=== PATIENT | male | born 1945 | race Hispanic/Latino ===

== ENCOUNTER 2017-10-03 10:45 | Inpatient (IN) | payer MEDICARE ==
[~2017-10-03] VITALS: Ht 170.2 cm; Wt 51.9 kg
[~2017-10-03 10:45] MED LIST: ATOR40TA69 PO; CARV12.511 PO; FURO20TA4 PO; ISOS60TA4 PO; LACT10SO9 PO; SPIR25TA4 PO; TAMS0.4C32 PO
[2017-10-03 11:30] LABS: BASOPHILS % (AUTO) 1.2 % (0.0-5.0); EOSINOPHILS % (AUTO) 1.9 % (0.0-8.0); HEMATOCRIT 28.7 % (42-54); LYMPHOCYTES % (AUTO) 6.6 % (21.0-51.0); MEAN CORPUSCULAR HEMOGLOBIN 23.7 pg (27.0-33.0); MEAN CORPUSCULAR HGB CONC 30.4 g/dL (32.0-36.0); MONOCYTES % (AUTO) 5.2 % (3.0-13.0); NEUTROPHILS % (AUTO) 85.1 % (40.0-77.0); PLATELET COUNT (AUTO) 162 K/uL (130-400); RED BLOOD CELL COUNT(AUTO) 3.68 MIL/uL (4.50-6.20); RED CELL DISTRIBUTION WIDTH 22.8 % (11.0-15.5); WHITE BLOOD COUNT (AUTO) 7.9 K/uL (4.8-10.8)
[2017-10-03 12:02] LABS: INR 1.19 (0.85-1.15); PARTIAL THROMBOPLASTIN TIME 30.3 SEC (26.3-35.5); PROTHROMBIN TIME 12.5 SEC (9.6-11.6)
[2017-10-03 12:12] LABS: ALBUMIN 2.6 g/dL (3.5-5.0); BILIRUBIN,TOTAL 1.2 mg/dL (0.2-1.0); CREATINE KINASE MB 0.8 ng/mL (0.5-3.6); CREATININE 1.8 mg/dL (0.5-1.5); POTASSIUM 4.4 mmol/L (3.5-5.1); TOTAL PROTEIN, SERUM 7.7 g/dL (6.0-8.3)
[2017-10-03] MEDS ORDERED: DOCU100C33 PO (23:22)
[2017-10-03 23:40] VITALS: BP 152/82
[2017-10-04 04:00] VITALS: BP 124/71
[2017-10-04 06:31] LABS: HEMATOCRIT 22.9 % (42-54); MEAN CORPUSCULAR HEMOGLOBIN 22.7 pg (27.0-33.0); MEAN CORPUSCULAR HGB CONC 29.6 g/dL (32.0-36.0); MEAN CORPUSCULAR VOLUME 76.6 fL (79-99); NUCLEATED RED BLOOD CELLS 0.1 % (0.0-0.19); PLATELET COUNT (AUTO) 128 K/uL (130-400); RED BLOOD CELL COUNT(AUTO) 2.99 MIL/uL (4.50-6.20); RED CELL DISTRIBUTION WIDTH 22.6 % (11.0-15.5); WHITE BLOOD COUNT (AUTO) 5.1 K/uL (4.8-10.8)
[2017-10-04 06:47] LABS: CREATININE 1.5 mg/dL (0.5-1.5); POTASSIUM 4.5 mmol/L (3.5-5.1)
[2017-10-04 08:07] VITALS: BP 127/73
[2017-10-04] MEDS ORDERED: SODIUM CHLORIDE 0.9% 250 ML IV ONE (11:47)
[2017-10-04 11:59] VITALS: BP 130/65
[2017-10-04] MEDS ORDERED: OCTREOTIDE ACETATE 1,000 MCG in SODIUM CHLORIDE 0.9% 95 ML IV SCH (12:30)
[2017-10-04] MEDS ORDERED: CEFTRIAXONE 1GM/D5W 50ML 50 ML IV SCH (12:45)
[2017-10-04] MEDS: CEFTRIAXONE SODIUM 1 GM IVP SCH (15:45)
[2017-10-04 16:00] VITALS: BP 139/70
[2017-10-04] MEDS: PANTOPRAZOLE SODIUM 80 MG in SODIUM CHLORIDE 0.9% 100 ML IV SCH (16:32)
[2017-10-04 20:00] VITALS: BP 134/74
[2017-10-04] MEDS: LACTULOSE 20 GM/30 ML UDCUP PO SCH (20:39)
[2017-10-05] VITALS (18 sets, daily range): BP systolic 120–145; BP diastolic 69–87
[2017-10-05] MEDS ORDERED: SODIUM CHLORIDE 0.9% 100 ML IV ONE (02:36)
[2017-10-05] MEDS: PANTOPRAZOLE SODIUM 80 MG in SODIUM CHLORIDE 0.9% 100 ML IV SCH (02:45)
[2017-10-05 04:31] LABS: HEMATOCRIT 28.3 % (42-54); MEAN CORPUSCULAR HEMOGLOBIN 26.3 pg (27.0-33.0); MEAN CORPUSCULAR HGB CONC 33.5 g/dL (32.0-36.0); MEAN CORPUSCULAR VOLUME 78.5 fL (79-99); NUCLEATED RED BLOOD CELLS 0.1 % (0.0-0.19); PLATELET COUNT (AUTO) 93 K/uL (130-400); RED BLOOD CELL COUNT(AUTO) 3.61 MIL/uL (4.50-6.20); RED CELL DISTRIBUTION WIDTH 20.5 % (11.0-15.5); WHITE BLOOD COUNT (AUTO) 4.5 K/uL (4.8-10.8)
[2017-10-05 04:43] LABS: BILIRUBIN,TOTAL 0.9 mg/dL (0.2-1.0); CREATININE 1.6 mg/dL (0.5-1.5); POTASSIUM 4.6 mmol/L (3.5-5.1); TOTAL PROTEIN, SERUM 6.1 g/dL (6.0-8.3)
[2017-10-05 05:10] LABS: BASOPHILS % (MANUAL) 1 % (0-2); EOSINOPHILS % (MANUAL) 3 % (1-6); LYMPHOCYTES % (MANUAL) 12 % (22-44); MAN.DIFF COMMENT-IMPRESSION MANUAL DIFFERENTIAL; MONOCYTES % (MANUAL) 5 % (2-9); SEGMENTED NEUTROPHILS % 79 % (40-70)
[2017-10-05] MEDS: LACTULOSE 20 GM/30 ML UDCUP PO SCH ×2 (09:00→21:21)
[2017-10-05] MEDS ORDERED: PROPOFOL 10 MG/ML 20ML VIAL IV ONE ×2 (11:05)
[2017-10-05] MEDS: CEFTRIAXONE SODIUM 1 GM IVP SCH ×2 (12:45→14:57)
[2017-10-05 17:08] LABS: APPEARANCE BODY FLUID CLEAR (CLEAR); COLOR,BODY FLUID LT YELLOW (LT YELLOW); SPECIMENTYPE,BODY FLUID ASCITES; TOTAL VOLUME,BODY FLUID 4700 mL
[2017-10-05 17:13] LABS: BODY FLUID RBC 39 /cu. mm.; BODY FLUID WBC 64 /cu. mm.
[2017-10-05 17:27] LABS: BF LYMPHOCYTE 26 %; BF MESOTHELIAL 13 %
[2017-10-05] MEDS: METOCLOPRAMIDE 10 MG/2 ML VIAL IVP SCH ×2 (17:28→21:20)
[2017-10-05] MEDS: FUROSEMIDE 20 MG TABLET PO SCH (17:29)
[2017-10-05] MEDS: DOCUSATE SODIUM 100 MG CAP PO SCH (21:20)
[2017-10-05] MEDS: ATORVASTATIN CALCIUM 40 MG TABLET PO SCH (21:20)
[2017-10-05] MEDS: TAMSULOSIN HCL 0.4 MG CAP.ER.24H PO SCH (21:20)
[2017-10-05] MEDS: CARVEDILOL 12.5 MG TABLET PO SCH (21:21)
[2017-10-06] VITALS: BP 104/66
[2017-10-06 03:58] VITALS: BP 100/58
[2017-10-06 04:12] LABS: MEAN CORPUSCULAR HEMOGLOBIN 25.2 pg (27.0-33.0); MEAN CORPUSCULAR HGB CONC 31.6 g/dL (32.0-36.0); MEAN CORPUSCULAR VOLUME 79.6 fL (79-99); NUCLEATED RED BLOOD CELLS 0.1 % (0.0-0.19); PLATELET COUNT (AUTO) 81 K/uL (130-400); RED BLOOD CELL COUNT(AUTO) 3.14 MIL/uL (4.50-6.20); RED CELL DISTRIBUTION WIDTH 21.1 % (11.0-15.5); WHITE BLOOD COUNT (AUTO) 3.5 K/uL (4.8-10.8)
[2017-10-06 04:20] LABS: CREATININE 1.5 mg/dL (0.5-1.5)
[2017-10-06] MEDS: METOCLOPRAMIDE 10 MG/2 ML VIAL IVP SCH ×5 (06:04→20:34)
[2017-10-06 07:00] VITALS: BP 103/57
[2017-10-06] MEDS: FUROSEMIDE 20 MG TABLET PO SCH ×2 (08:00→17:36)
[2017-10-06] MEDS: CARVEDILOL 12.5 MG TABLET PO SCH ×2 (09:00→20:35)
[2017-10-06] MEDS: LACTULOSE 20 GM/30 ML UDCUP PO SCH ×2 (09:00→20:34)
[2017-10-06] MEDS: SPIRONOLACTONE 25 MG TAB PO SCH (09:00)
[2017-10-06] MEDS: ISOSORBIDE MONO 60 MG TAB.SR PO SCH (09:00)
[2017-10-06 11:00] VITALS: BP 107/59
[2017-10-06] MEDS: DOCUSATE SODIUM 100 MG CAP PO SCH ×2 (13:28→20:34)
[2017-10-06] MEDS: CEFTRIAXONE SODIUM 1 GM IVP SCH (13:30)
[2017-10-06 16:00] VITALS: BP 116/65
[2017-10-06 20:00] VITALS: BP 116/65
[2017-10-06] MEDS: ATORVASTATIN CALCIUM 40 MG TABLET PO SCH (20:34)
[2017-10-06] MEDS: TAMSULOSIN HCL 0.4 MG CAP.ER.24H PO SCH (20:34)
[2017-10-07] VITALS (18 sets, daily range): BP systolic 107–143; BP diastolic 58–72
[2017-10-07 04:18] LABS: CREATININE 1.6 mg/dL (0.5-1.5); HEMATOCRIT 25.7 % (42-54); MEAN CORPUSCULAR HGB CONC 32.9 g/dL (32.0-36.0); MEAN CORPUSCULAR VOLUME 79.1 fL (79-99); PLATELET COUNT (AUTO) 82 K/uL (130-400); POTASSIUM 3.8 mmol/L (3.5-5.1); RED BLOOD CELL COUNT(AUTO) 3.25 MIL/uL (4.50-6.20); RED CELL DISTRIBUTION WIDTH 21.4 % (11.0-15.5); WHITE BLOOD COUNT (AUTO) 3.8 K/uL (4.8-10.8)
[2017-10-07] MEDS: METOCLOPRAMIDE 10 MG/2 ML VIAL IVP SCH ×2 (06:01→11:30)
[2017-10-07] MEDS: FUROSEMIDE 20 MG TABLET PO SCH (08:00)
[2017-10-07] MEDS: SPIRONOLACTONE 25 MG TAB PO SCH (09:00)
[2017-10-07] MEDS: LACTULOSE 20 GM/30 ML UDCUP PO SCH (09:00)
[2017-10-07] MEDS: CARVEDILOL 12.5 MG TABLET PO SCH (09:00)
[2017-10-07] MEDS: DOCUSATE SODIUM 100 MG CAP PO SCH (09:00)
[2017-10-07] MEDS: ISOSORBIDE MONO 60 MG TAB.SR PO SCH (09:00)
[2017-10-07] MEDS ORDERED: PROPOFOL 10 MG/ML 20ML VIAL IV ONE (10:25)
[2017-10-07] MEDS ORDERED: LACT PO (12:17)
[2017-10-07] MEDS ORDERED: CEFD300C3 PO (12:17)
[2017-10-07] MEDS ORDERED: PANT40TA PO (12:51)
== END 2017-10-07 15:31 | disposition home or self-care (01) | DRG 368 ==
LOC: EDH 10:45 → EDHIP 13:59 → 3CH 23:08
PROVIDERS: ADMIT Internal Medicine Nephrology; ATTEND Internal Medicine Nephrology
PROC: 0W993ZZ Drainage of Right Pleural Cavity, Percutaneous Approach (ICD-10-PCS; 2017-10-03)
PROC: 0DJ08ZZ Inspection of Upper Intestinal Tract, Via Natural or Artificial Opening Endoscopic (ICD-10-PCS; 2017-10-05)
PROC: 0W9G30Z Drainage of Peritoneal Cavity with Drainage Device, Percutaneous Approach (ICD-10-PCS; 2017-10-05)
PROC: 0DJ08ZZ Inspection of Upper Intestinal Tract, Via Natural or Artificial Opening Endoscopic (ICD-10-PCS; principal; 2017-10-07)
PROC: 30233N1 Transfusion of Nonautologous Red Blood Cells into Peripheral Vein, Percutaneous Approach (ICD-10-PCS; 2017-10-07)
DX: I85.00 Esophageal varices without bleeding (principal); K31.811 Angiodysplasia of stomach and duodenum with bleeding; D61.818 Other pancytopenia; J90 Pleural effusion, not elsewhere classified; D69.6 Thrombocytopenia, unspecified; E11.22 Type 2 diabetes mellitus with diabetic chronic kidney disease; D62 Acute posthemorrhagic anemia; N18.3 Chronic kidney disease, stage 3 (moderate); K92.1 Melena; I13.0 Hypertensive heart and chronic kidney disease with heart failure and stage 1 through stage 4 chronic kidney disease, or unspecified chronic kidney disease; K76.6 Portal hypertension; I50.9 Heart failure, unspecified; K70.31 Alcoholic cirrhosis of liver with ascites; D50.9 Iron deficiency anemia, unspecified; E78.5 Hyperlipidemia, unspecified; K25.9 Gastric ulcer, unspecified as acute or chronic, without hemorrhage or perforation; N40.0 Benign prostatic hyperplasia without lower urinary tract symptoms; Z82.49 Family history of ischemic heart disease and other diseases of the circulatory system; Z83.3 Family history of diabetes mellitus
CPT/HCPCS: 32555; 36415; 36430; 49083; 71045; 76700; 80048; 80053; 82042; 82105; 82140; 82270; 82550; 82553; 82948; 83735; 83874; 84157; 84484; 85025; 85027; 85610; 85730; 86850; 86900; 86901; 86922; 89051; 92610; 93005; A4218; C9113; J0696; J2354; J2704; J2765; J7030; P9016

== ENCOUNTER 2017-11-02 11:44 | Inpatient (IN) | payer MEDICARE ==
[~2017-11-02] VITALS: Ht 167.6 cm; Wt 50.2 kg
[~2017-11-02 11:44] MED LIST changes: +CEFD300C3 PO; +LACT PO; -LACT10SO9 PO; +PANT40TA PO; -SPIR25TA4 PO; +SPIR25TA6 PO
[2017-11-02 12:59] LABS: BASOPHILS % (AUTO) 0.7 % (0.0-5.0); EOSINOPHILS % (AUTO) 0.1 % (0.0-8.0); HEMATOCRIT 29.1 % (42-54); LYMPHOCYTES % (AUTO) 1.9 % (21.0-51.0); MEAN CORPUSCULAR HEMOGLOBIN 23.4 pg (27.0-33.0); MEAN CORPUSCULAR HGB CONC 31.8 g/dL (32.0-36.0); MEAN CORPUSCULAR VOLUME 73.4 fL (79-99); MONOCYTES % (AUTO) 5.2 % (3.0-13.0); NEUTROPHILS % (AUTO) 92.1 % (40.0-77.0); PLATELET COUNT (AUTO) 88 K/uL (130-400); RED BLOOD CELL COUNT(AUTO) 3.96 MIL/uL (4.50-6.20); WHITE BLOOD COUNT (AUTO) 12.1 K/uL (4.8-10.8)
[2017-11-02 13:10] LABS: POTASSIUM 3.8 mmol/L (3.5-5.1)
[2017-11-02 13:13] LABS: CARBON DIOXIDE 24 mmol/L (21-32); CHLORIDE 107 mmol/L (101-111); CREATININE 2.3 mg/dL (0.5-1.5); GLOMERULAR FILTR. RATE CALC 30 mL/min (>60); GLUCOSE,RANDOM 122 mg/dL (70-105); SODIUM SERUM 141 mmol/L (136-145); UREA NITROGEN, BLOOD 42 mg/dL (7-18)
[2017-11-02] MEDS ORDERED: IPRATROPIUM/ALBUTEROL SULFATE 3 ML SOLUTION IH ONE (13:17)
[2017-11-02 13:18] LABS: ALANINE AMINOTRANSFERASE 28 U/L (12-78); ALBUMIN 1.5 g/dL (3.5-5.0); ASPARTATE AMINOTRANSFERASE 66 U/L (10-37); BILIRUBIN,TOTAL 1.7 mg/dL (0.2-1.0); CREATINE KINASE, TOTAL 267 U/L (21-232); LIPASE 231 U/L (114-286); TOTAL PROTEIN, SERUM 6.8 g/dL (6.0-8.3)
[2017-11-02 13:19] LABS: INR 1.5 (0.85-1.15); PARTIAL THROMBOPLASTIN TIME 38.5 SEC (26.3-35.5); PROTHROMBIN TIME 15.6 SEC (9.6-11.6)
[2017-11-02 13:36] LABS: AMMONIA < 3 umol/L (11-32)
[2017-11-02 14:43] LABS: APPEARANCE,URINE Turbid (CLEAR); BILIRUBIN,URINE Small (NEGATIVE); COLOR,URINE Dark Yellow (YELLOW); GLUCOSE, URINE (UA) Negative (NEGATIVE); KETONES,URINE Negative (NEGATIVE); LEUKOCYTE ESTERASE ,URINE Large (NEGATIVE); NITRATE,URINE Positive (NEGATIVE); OCCULT BLOOD,URINE Trace (NEGATIVE); PROTEIN,URINE POS 1+ (NEGATIVE)
[2017-11-02 14:59] LABS: AMORPHOUS SEDIMENT,UR Many /LPF (None Seen); BACTERIA,URINE Many /HPF (None Seen); RBC,URINE None Seen /HPF (0-1); SQUAMOUS EPITHELIAL CELL,UR 50-100 /HPF (0-2)
[2017-11-02] MEDS ORDERED: SODIUM CHLORIDE 0.9% 100 ML IV ONE (15:05)
[2017-11-02] MEDS ORDERED: CEFTRIAXONE SODIUM 1 GM ONE (15:05)
[2017-11-02] MEDS ORDERED: HYDRALAZINE HCL 20 MG/ML VIAL IV PRN (15:30)
[2017-11-02] MEDS ORDERED: IPRATROPIUM/ALBUTEROL SULFATE 3 ML SOLUTION IH PRN (15:30)
[2017-11-02] MEDS ORDERED: GUAIFENESIN-DM 200/20 MG 10 ML PO PRN (15:30)
[2017-11-02] MEDS ORDERED: ONDANSETRON HCL MDV 20ML 2 MG/ML VIAL IV PRN (15:30)
[2017-11-02] MEDS ORDERED: ACETAMINOPHEN 325 MG TAB PO PRN (15:30)
[2017-11-02] MEDS ORDERED: ALBUMIN (HUMAN) 25% 100 ML IV SCH (15:30)
[2017-11-02] MEDS ORDERED: ZOSYN 3.375GM+NS 50ML 50 ML IV ONE (16:06)
[2017-11-02] MEDS ORDERED: VANCOMYCIN 1GM+NS 250ML 250 ML IV ONE (17:19)
[2017-11-02 23:00] VITALS: BP 129/77
[2017-11-02] MEDS: CARVEDILOL 12.5 MG TABLET PO SCH (23:50)
[2017-11-02] MEDS: ATORVASTATIN CALCIUM 20 MG TABLET PO SCH (23:50)
[2017-11-02] MEDS: FUROSEMIDE 20 MG TABLET PO SCH (23:51)
[2017-11-03 03:00] VITALS: BP 98/56
[2017-11-03 05:33] LABS: HEMATOCRIT 24.6 % (42-54); MEAN CORPUSCULAR HEMOGLOBIN 23.7 pg (27.0-33.0); MEAN CORPUSCULAR HGB CONC 32.6 g/dL (32.0-36.0); MEAN CORPUSCULAR VOLUME 72.8 fL (79-99); PLATELET COUNT (AUTO) 66 K/uL (130-400); RED BLOOD CELL COUNT(AUTO) 3.37 MIL/uL (4.50-6.20); RED CELL DISTRIBUTION WIDTH 20.8 % (11.0-15.5); WHITE BLOOD COUNT (AUTO) 8.4 K/uL (4.8-10.8)
[2017-11-03 05:40] LABS: CREATININE 2.6 mg/dL (0.5-1.5); MAGNESIUM 2.1 mg/dL (1.80-2.40); POTASSIUM 4.2 mmol/L (3.5-5.1)
[2017-11-03 07:55] VITALS: BP 98/56
[2017-11-03] MEDS: TAMSULOSIN HCL 0.4 MG CAP.ER.24H PO SCH (08:23)
[2017-11-03] MEDS: FUROSEMIDE 20 MG TABLET PO SCH ×2 (08:24→21:06)
[2017-11-03] MEDS: LACTULOSE 20 GM/30 ML UDCUP PO SCH (08:24)
[2017-11-03] MEDS: PANTOPRAZOLE SODIUM 40 MG TABLET.DR PO SCH (08:24)
[2017-11-03] MEDS: SPIRONOLACTONE 25 MG TAB PO SCH (08:24)
[2017-11-03] MEDS: CARVEDILOL 12.5 MG TABLET PO SCH ×2 (08:29→21:06)
[2017-11-03] MEDS ORDERED: CEFTRIAXONE 1GM/D5W 50ML 50 ML IV SCH (09:00)
[2017-11-03 11:35] VITALS: BP 106/60
[2017-11-03 16:00] VITALS: BP 110/60
[2017-11-03] MEDS: CEFTRIAXONE SODIUM 1 GM IVP SCH (16:24)
[2017-11-03 19:40] VITALS: BP 108/61
[2017-11-03] MEDS: FERROUS SULFATE 325 MG TABLET.DR PO SCH (21:05)
[2017-11-03] MEDS: ATORVASTATIN CALCIUM 20 MG TABLET PO SCH (21:05)
[2017-11-03 22:50] VITALS: BP 123/66
[2017-11-04] VITALS (14 sets, daily range): BP systolic 100–121; BP diastolic 46–77
[2017-11-04 04:57] LABS: CREATININE 2.9 mg/dL (0.5-1.5); POTASSIUM 4.2 mmol/L (3.5-5.1)
[2017-11-04 05:07] LABS: HEMATOCRIT 24.7 % (42-54); MEAN CORPUSCULAR HEMOGLOBIN 22.9 pg (27.0-33.0); MEAN CORPUSCULAR HGB CONC 31.4 g/dL (32.0-36.0); MEAN CORPUSCULAR VOLUME 72.8 fL (79-99); PLATELET COUNT (AUTO) 64 K/uL (130-400); RED CELL DISTRIBUTION WIDTH 21.1 % (11.0-15.5); WHITE BLOOD COUNT (AUTO) 7.7 K/uL (4.8-10.8)
[2017-11-04] MEDS ORDERED: ALBUMIN (HUMAN) 25% 100 ML IV SCH (10:00)
[2017-11-04] MEDS: FERROUS SULFATE 325 MG TABLET.DR PO SCH ×2 (10:02→21:36)
[2017-11-04] MEDS: TAMSULOSIN HCL 0.4 MG CAP.ER.24H PO SCH (10:02)
[2017-11-04] MEDS: SPIRONOLACTONE 25 MG TAB PO SCH (10:02)
[2017-11-04] MEDS: LACTULOSE 20 GM/30 ML UDCUP PO SCH (10:02)
[2017-11-04] MEDS: PANTOPRAZOLE SODIUM 40 MG TABLET.DR PO SCH (10:02)
[2017-11-04] MEDS: CARVEDILOL 12.5 MG TABLET PO SCH ×2 (10:03→21:00)
[2017-11-04] MEDS ORDERED: LIDOCAINE HCL 1% 20 ML VIAL ONE (14:46)
[2017-11-04] MEDS: CEFTRIAXONE SODIUM 1 GM IVP SCH (16:35)
[2017-11-04] MEDS: ATORVASTATIN CALCIUM 20 MG TABLET PO SCH (21:36)
[2017-11-05] VITALS (17 sets, daily range): BP systolic 95–117; BP diastolic 52–78
[2017-11-05 04:51] LABS: MEAN CORPUSCULAR HEMOGLOBIN 22.8 pg (27.0-33.0); MEAN CORPUSCULAR VOLUME 71.3 fL (79-99); PLATELET COUNT (AUTO) 74 K/uL (130-400); RED BLOOD CELL COUNT(AUTO) 3.36 MIL/uL (4.50-6.20); RED CELL DISTRIBUTION WIDTH 21.1 % (11.0-15.5)
[2017-11-05 05:21] LABS: CREATININE 3.3 mg/dL (0.5-1.5); POTASSIUM 4.7 mmol/L (3.5-5.1)
[2017-11-05 07:57] LABS: INR 1.58 (0.85-1.15); PARTIAL THROMBOPLASTIN TIME 40.8 SEC (26.3-35.5); PROTHROMBIN TIME 16.4 SEC (9.6-11.6)
[2017-11-05] MEDS: LACTULOSE 20 GM/30 ML UDCUP PO SCH (09:57)
[2017-11-05] MEDS: PANTOPRAZOLE SODIUM 40 MG TABLET.DR PO SCH (09:58)
[2017-11-05] MEDS: TAMSULOSIN HCL 0.4 MG CAP.ER.24H PO SCH (09:58)
[2017-11-05] MEDS: FERROUS SULFATE 325 MG TABLET.DR PO SCH ×2 (09:58→20:24)
[2017-11-05] MEDS: FUROSEMIDE 20 MG TABLET PO SCH (09:58)
[2017-11-05] MEDS: MORPHINE SULFATE 4 MG/1ML SYG IV PRN (09:59)
[2017-11-05] MEDS: CARVEDILOL 12.5 MG TABLET PO SCH (10:00)
[2017-11-05] MEDS: SPIRONOLACTONE 25 MG TAB PO SCH (10:00)
[2017-11-05] MEDS ORDERED: ALBUMIN (HUMAN) 25% 100 ML IV SCH (11:45)
[2017-11-05] MEDS ORDERED: ALBUMIN (HUMAN) 25% 50 ML IV SCH (12:15)
[2017-11-05] MEDS ORDERED: LIDOCAINE HCL 1% 20 ML VIAL ONE (14:50)
[2017-11-05] MEDS: CEFTRIAXONE SODIUM 1 GM IVP SCH (18:46)
[2017-11-05] MEDS: ATORVASTATIN CALCIUM 40 MG TABLET PO SCH (20:24)
[2017-11-05] MEDS ORDERED: CARVEDILOL 3.125 MG TABLET PO SCH (21:00)
[2017-11-06] VITALS (7 sets, daily range): BP systolic 100–112; BP diastolic 38–64
[2017-11-06 04:40] LABS: HEMATOCRIT 23.8 % (42-54); MEAN CORPUSCULAR HEMOGLOBIN 23.6 pg (27.0-33.0); MEAN CORPUSCULAR VOLUME 71.5 fL (79-99); NUCLEATED RED BLOOD CELLS 0.1 % (0.0-0.19); PLATELET COUNT (AUTO) 65 K/uL (130-400); RED BLOOD CELL COUNT(AUTO) 3.33 MIL/uL (4.50-6.20); RED CELL DISTRIBUTION WIDTH 21.2 % (11.0-15.5); WHITE BLOOD COUNT (AUTO) 5.8 K/uL (4.8-10.8)
[2017-11-06 04:51] LABS: CREATININE 3.9 mg/dL (0.5-1.5); POTASSIUM 4.5 mmol/L (3.5-5.1)
[2017-11-06 04:54] LABS: % IRON SATURATION 42.8 % (30-44)
[2017-11-06 06:16] LABS: CREATININE,URINE RANDOM 155 mg/dL (30-135); SODIUM,URINE RANDOM < 15 mmol/l (40-220)
[2017-11-06] MEDS ORDERED: EPOETIN ALFA 10,000 UNIT/ML VIAL SQ SCH (10:00)
[2017-11-06] MEDS: PANTOPRAZOLE SODIUM 40 MG TABLET.DR PO SCH (10:37)
[2017-11-06] MEDS: FERROUS SULFATE 325 MG TABLET.DR PO SCH ×2 (10:37→21:21)
[2017-11-06] MEDS: SPIRONOLACTONE 25 MG TAB PO SCH (10:37)
[2017-11-06] MEDS: TAMSULOSIN HCL 0.4 MG CAP.ER.24H PO SCH (10:37)
[2017-11-06] MEDS: LACTULOSE 20 GM/30 ML UDCUP PO SCH (10:37)
[2017-11-06] MEDS: FUROSEMIDE 20 MG TABLET PO SCH (10:38)
[2017-11-06] MEDS: ALBUMIN (HUMAN) 25% 100 ML IV SCH ×2 (11:52→23:05)
[2017-11-06] MEDS: MIDODRINE HCL 5 MG TABLET PO SCH ×2 (15:15→21:21)
[2017-11-06] MEDS: CEFTRIAXONE SODIUM 1 GM IVP SCH (15:15)
[2017-11-06] MEDS: MORPHINE SULFATE 4 MG/1ML SYG IV PRN (15:34)
[2017-11-06] MEDS: ATORVASTATIN CALCIUM 40 MG TABLET PO SCH (21:21)
[2017-11-07 03:18] VITALS: BP 110/60
[2017-11-07 07:06] LABS: CREATININE 4.1 mg/dL (0.5-1.5); POTASSIUM 4.5 mmol/L (3.5-5.1)
[2017-11-07 07:46] VITALS: BP 111/62
[2017-11-07] MEDS: MIDODRINE HCL 5 MG TABLET PO SCH ×3 (08:36→21:30)
[2017-11-07] MEDS: FERROUS SULFATE 325 MG TABLET.DR PO SCH ×2 (08:36→21:30)
[2017-11-07] MEDS: SPIRONOLACTONE 25 MG TAB PO SCH (08:36)
[2017-11-07] MEDS: FUROSEMIDE 20 MG TABLET PO SCH (08:36)
[2017-11-07] MEDS: LACTULOSE 20 GM/30 ML UDCUP PO SCH (08:36)
[2017-11-07] MEDS: PANTOPRAZOLE SODIUM 40 MG TABLET.DR PO SCH (08:36)
[2017-11-07] MEDS: TAMSULOSIN HCL 0.4 MG CAP.ER.24H PO SCH (08:36)
[2017-11-07] MEDS: ALBUMIN (HUMAN) 25% 100 ML IV SCH ×2 (11:45→23:52)
[2017-11-07 11:46] VITALS: BP 110/54
[2017-11-07 15:35] VITALS: BP 125/74
[2017-11-07] MEDS: CEFTRIAXONE SODIUM 1 GM IVP SCH (16:05)
[2017-11-07 19:20] VITALS: BP 116/61
[2017-11-07] MEDS: ATORVASTATIN CALCIUM 40 MG TABLET PO SCH (21:30)
[2017-11-08 00:30] VITALS: BP 116/62
[2017-11-08 04:25] VITALS: BP 118/60
[2017-11-08 07:18] LABS: AMMONIA < 3 umol/L (11-32)
[2017-11-08 07:54] LABS: CARBON DIOXIDE 21 mmol/L (21-32); CHLORIDE 101 mmol/L (101-111); CREATININE 4.6 mg/dL (0.5-1.5); GLOMERULAR FILTR. RATE CALC 14 mL/min (>60); GLUCOSE,RANDOM 115 mg/dL (70-105); POTASSIUM 4.8 mmol/L (3.5-5.1); SODIUM SERUM 138 mmol/L (136-145)
[2017-11-08 08:00] VITALS: BP 106/65
[2017-11-08 08:18] LABS: UREA NITROGEN, BLOOD 82 mg/dL (7-18)
[2017-11-08] MEDS: MIDODRINE HCL 5 MG TABLET PO SCH ×2 (11:30→14:00)
[2017-11-08] MEDS: PANTOPRAZOLE SODIUM 40 MG TABLET.DR PO SCH (11:30)
[2017-11-08] MEDS: SPIRONOLACTONE 25 MG TAB PO SCH (11:30)
[2017-11-08] MEDS: LACTULOSE 20 GM/30 ML UDCUP PO SCH (11:31)
[2017-11-08] MEDS: FERROUS SULFATE 325 MG TABLET.DR PO SCH (11:31)
[2017-11-08] MEDS: FUROSEMIDE 20 MG TABLET PO SCH (11:31)
[2017-11-08] MEDS: TAMSULOSIN HCL 0.4 MG CAP.ER.24H PO SCH (11:31)
[2017-11-08 12:00] VITALS: BP 126/64
[2017-11-08] MEDS: MORPHINE SULFATE 4 MG/1ML SYG IV PRN (13:15)
[2017-11-08 16:00] VITALS: BP 125/64
[2017-11-08] MEDS: CEFTRIAXONE SODIUM 1 GM IVP SCH (18:11)
[2017-11-08 19:15] VITALS: BP 128/70
[2017-11-09] VITALS: BP 130/70
[2017-11-09] MEDS: ATORVASTATIN CALCIUM 40 MG TABLET PO SCH (00:51)
[2017-11-09] MEDS: METRONIDAZOLE 500MG/100ML BAG 100 ML IV SCH ×3 (00:51→14:13)
[2017-11-09] MEDS: FERROUS SULFATE 325 MG TABLET.DR PO SCH ×2 (00:51→11:06)
[2017-11-09] MEDS: MIDODRINE HCL 5 MG TABLET PO SCH ×3 (00:51→14:13)
[2017-11-09 04:00] VITALS: BP 126/70
[2017-11-09 04:40] LABS: CREATININE 4.5 mg/dL (0.5-1.5); POTASSIUM 4.9 mmol/L (3.5-5.1)
[2017-11-09 08:42] VITALS: BP 134/82
[2017-11-09] MEDS: FUROSEMIDE 20 MG TABLET PO SCH (11:05)
[2017-11-09] MEDS: TAMSULOSIN HCL 0.4 MG CAP.ER.24H PO SCH (11:06)
[2017-11-09] MEDS: PANTOPRAZOLE SODIUM 40 MG TABLET.DR PO SCH (11:06)
[2017-11-09] MEDS: SPIRONOLACTONE 25 MG TAB PO SCH (11:06)
[2017-11-09] MEDS: LACTULOSE 20 GM/30 ML UDCUP PO SCH (11:06)
[2017-11-09] MEDS ORDERED: FERR324T4 PO (11:51)
[2017-11-09] MEDS ORDERED: GUAI5SYR PO (11:51)
[2017-11-09] MEDS ORDERED: Midodrine Hcl PO (11:51)
[2017-11-09] MEDS ORDERED: FURO20TA6 PO (11:51)
[2017-11-09 12:37] VITALS: BP_SYST 137; BP_SYST 159; BP_DIAS 72; BP_DIAS 82
[2017-11-09] MEDS: CEFTRIAXONE SODIUM 1 GM IVP SCH (14:13)
[2017-11-09 16:16] VITALS: BP 141/80
== END 2017-11-09 20:00 | disposition hospice, home (50) | DRG 177 ==
LOC: EDH 11:44 → EDHIP 15:26 → 3CH 22:31
PROVIDERS: ADMIT Internal Medicine Nephrology; ATTEND Internal Medicine Nephrology
PROC: 0W9G3ZZ Drainage of Peritoneal Cavity, Percutaneous Approach (ICD-10-PCS; principal; 2017-11-04)
PROC: 30233R1 Transfusion of Nonautologous Platelets into Peripheral Vein, Percutaneous Approach (ICD-10-PCS; 2017-11-04)
PROC: 0W9930Z Drainage of Right Pleural Cavity with Drainage Device, Percutaneous Approach (ICD-10-PCS; 2017-11-05)
DX: J69.0 Pneumonitis due to inhalation of food and vomit (principal); J96.00 Acute respiratory failure, unspecified whether with hypoxia or hypercapnia; E43 Unspecified severe protein-calorie malnutrition; N17.9 Acute kidney failure, unspecified; D69.59 Other secondary thrombocytopenia; I42.9 Cardiomyopathy, unspecified; J90 Pleural effusion, not elsewhere classified; I95.89 Other hypotension; I13.0 Hypertensive heart and chronic kidney disease with heart failure and stage 1 through stage 4 chronic kidney disease, or unspecified chronic kidney disease; I50.9 Heart failure, unspecified; N39.0 Urinary tract infection, site not specified; Z68.1 Body mass index [BMI] 19.9 or less, adult; N18.4 Chronic kidney disease, stage 4 (severe); K70.31 Alcoholic cirrhosis of liver with ascites; D50.9 Iron deficiency anemia, unspecified; N41.9 Inflammatory disease of prostate, unspecified; E86.9 Volume depletion, unspecified
CPT/HCPCS: 32555; 36415; 36430; 49083; 71045; 80048; 80053; 81001; 82140; 82550; 82570; 82948; 83540; 83550; 83605; 83615; 83690; 83735; 84300; 84484; 85025; 85027; 85610; 85730; 86850; 86900; 86901; 87088; 87804; 92610; 93005; A4218; J0696; J0885; J2270; J2543; J3370; J3490; P9034; P9046; P9047